=== PATIENT | female | born 1980 ===

== ENCOUNTER 2023-04-12 10:11 | Outpatient (REF) | payer MEDICAID, OTHER, SELFPAY ==
[2023-04-12 11:02] LABS: MANUAL DIFF FLAG NO
[2023-04-12 11:28] LABS: Basophils Percent Auto 0.4 % (0-2); Eosinophils Percent Auto 0.4 % (0-4); Hemoglobin 14.1 g/dl (12.0-16.0); Imm Gran Abs Auto 0.02 X10*3/uL (0.00-0.03); Imm Gran Pct Auto 0.2 % (0.0-0.4); Lymphocytes Absolute Auto 1.9 X10*3/uL (1.2-4.9); Mean Corpuscular HGB Conc 33.6 g/dl (31.0-35.0); Mean Corpuscular Hemoglobin 30.7 pg (27.0-33.0); Mean Corpuscular Volume 91.5 fL (80.0-98.0); Mean Platelet Volume 11.3 fL (9.4-12.3); Monocytes Absolute Auto 0.4 X10*3/uL (0.1-1.2); Monocytes Percent Auto 4.8 % (2-11); Neutrophils Absolute Auto 6.2 x10*3/uL (2.0-8.3); Neutrophils Percent Auto 72.2 % (45-73); Platelet Count 296 X10*3/uL (160-400); Red Blood Count 4.59 X10*6/uL (4.20-5.50); White Blood Count 8.5 X10*3/uL (4.8-10.8)
[2023-04-12 11:49] LABS: Alanine Aminotransferase 12 U/L (0-31); Albumin Level 4.2 g/dL (3.5-5.0); Alkaline Phosphatase 45 U/L (39-117); Anion Gap 12 (12-20); Aspartate Amino Transferase 18 U/L (5-31); Bilirubin Total 0.9 mg/dL (0.0-1.0); Blood Urea Nitrogen 14 mg/dL (9-16); C Reactive Protein < 0.10 mg/dL (< or = 0.50); Calcium 9.4 mg/dL (8.4-10.2); Carbon Dioxide 28 mmol/L (22-29); Chloride 106 mmol/L (96-108); Estimated Glomerular Filt Rate > 60; Glucose Random 96 mg/dL (60-115); Potassium 4.8 mmol/L (3.3-5.1); Sodium 141 mmol/L (135-145); Total Protein 7.1 g/dL (6.5-8.0)
[2023-04-12 12:00] LABS: HBS Num1 0.17 mIU/mL (0-7.99); HBc Num1 0.09 S/CO (0.00-0.79); HBsAGNum1 0.34 S/CO (0.00-0.99); Hepatitis A Antibody IgM 0.36 Index (0-0.79); Hepatitis B Core Antibody Nonreactive (Nonreactive); Hepatitis B Surface Antigen Negative (Negative); ~HepC Num1 0.09 S/CO (0.00-0.79); ~Hepatitis A Antibody IgM Nonreactive (Nonreactive); ~Hepatitis B Surface Antibody NONREACTIVE (Nonreactive); ~Hepatitis C Antibody Nonreactive (Nonreactive)
[2023-04-12 12:07] LABS: TSH reflex Free T4 1.93 uIU/mL (0.32-4.0); Vitamin D 25-OH Total 31.6 ng/mL (>30)
[2023-04-12 12:32] LABS: Erythrocyte Sedimentation Rate 7 MM/HR (0-20)
[2023-04-14 17:38] LABS: TS Negative Control Passed; TS Panel A 1; TS Panel B 1; TS Positive Control Passed; TSpotTB Negative (Negative)
[2023-04-15 10:04] LABS: Anti Nuclear Antibody Screen NEGATIVE (NEGATIVE)
== END 2023-04-12 10:12 | disposition home or self-care (01) ==
LOC: HO.HHCL 10:11
PROVIDERS: Visit Provider Internal Medicine
DX: R39.9 Unspecified symptoms and signs involving the genitourinary system (principal); G89.29 Other chronic pain; M54.6 Pain in thoracic spine; K59.01 Slow transit constipation
CPT/HCPCS: 36415; 80053; 82306; 84443; 85025; 85652; 86038; 86140; 86481; 86704; 86706; 86709; 86803; 87340

== ENCOUNTER 2023-05-07 14:16 | Outpatient (REF) | payer MEDICAID, OTHER, SELFPAY ==
--- NOTE | ~2023-05-07 | US_ITS ---
EXAMINATION: US RETROPERITONEAL LIMITED (RENAL ONLY) CLINICAL INFORMATION: Lower abdominal pain. COMPARISON: None available. TECHNIQUE: Real-time imaging of the kidneys. FINDINGS: RIGHT KIDNEY: 10.0 x 3.5 x 4.4 cm (SAG x AP x TRV). The kidney is normal in size, contour, and echogenicity. Renal cortical thickness is normal. 5 mm nonobstructing calculus. No hydronephrosis. LEFT KIDNEY: 9.4 x 5.2 x 5.5 cm (SAG x AP x TRV). The kidney is normal in size, contour, and echogenicity. Renal cortical thickness is normal. No calculi or focal parenchymal lesions. No hydronephrosis. US/US renal BI IMPRESSION: 5 mm nonobstructing right renal calculus. No left-sided renal calculi. No hydronephrosis of either kidney.
== END 2023-05-07 14:17 | disposition home or self-care (01) ==
LOC: HO.US 14:16
PROVIDERS: Visit Provider Internal Medicine
DX: R39.9 Unspecified symptoms and signs involving the genitourinary system (principal); M54.6 Pain in thoracic spine; G89.29 Other chronic pain
CPT/HCPCS: 76775

== ENCOUNTER 2023-08-05 09:41 | Outpatient (REF) | payer MEDICAID, OTHER, SELFPAY ==
[2023-08-05 11:43] LABS: Hematocrit 39.4 % (37.0-47.0); Hemoglobin 13.4 g/dl (12.0-16.0); Mean Corpuscular Hemoglobin 30.7 pg (27.0-33.0); Mean Corpuscular Volume 90.4 fL (80.0-98.0); Mean Platelet Volume 11.1 fL (9.4-12.3); Platelet Count 316 X10*3/uL (160-400); Red Blood Count 4.36 X10*6/uL (4.20-5.50); Red Cell Distribution Width 12.4 % (11.0-16.0); White Blood Count 7.7 X10*3/uL (4.8-10.8)
[2023-08-05 11:50] LABS: Estimated Average Glucose 94 mg/dL; Hemoglobin A1c % 4.9 % (<6.0)
[2023-08-05 12:02] LABS: Alanine Aminotransferase 17 U/L (0-31); Albumin Level 3.7 g/dL (3.5-5.0); Alkaline Phosphatase 34 U/L (39-117); Anion Gap 11 (12-20); Aspartate Amino Transferase 19 U/L (5-31); Bilirubin Total 0.7 mg/dL (0.0-1.0); Blood Urea Nitrogen 13 mg/dL (9-16); Calcium 9.2 mg/dL (8.4-10.2); Carbon Dioxide 26 mmol/L (22-29); Chloride 108 mmol/L (96-108); Cholesterol 216 mg/dL (<200); Estimated Glomerular Filt Rate > 60; Glucose Random 92 mg/dL (60-115); HDL Cholesterol 49 mg/dL (>40); LDL Cholesterol Calculated 131 mg/dL (<100); Potassium 4.6 mmol/L (3.3-5.1); Sodium 140 mmol/L (135-145); Total Protein 6.6 g/dL (6.5-8.0); Triglycerides 181 mg/dL (<150)
[2023-08-05 12:07] LABS: Syphilis Screen Nonreactive (Nonreactive)
[2023-08-05 12:09] LABS: HBc Num1 0.17 S/CO (0.00-0.79); HIV AB/AG Nonreactive (Nonreactive); HIV Num 1 0.06 S/CO (0.00-0.99); Hepatitis B Core Antibody Nonreactive (Nonreactive); Hepatitis B Surface Antigen Negative (Negative); ~HepC Num1 0.19 S/CO (0.00-0.79); ~Hepatitis B Surface Antibody NONREACTIVE (Nonreactive); ~Hepatitis C Antibody Nonreactive (Nonreactive)
[2023-08-05 12:19] LABS: TSH reflex Free T4 2.79 uIU/mL (0.32-4.0)
[2023-08-05 16:05] LABS: Appearance Urine Clear; Color Urine Yellow; Glucose Urine UA Negative (Negative); Leukocyte Esterase Urine Negative (Negative); Nitrite Urine Negative (Negative); Specific Gravity - Urine <= 1.005 (1.005-1.025); Urine Blood Negative (Negative); Urine Ketones Trace mg/dL (Negative); Urine Protein Negative (Neg-Trace)
[2023-08-05 18:02] LABS: CT PCR NOT DETECTED (Not Detect.); NG PCR NOT DETECTED (Not Detect.)
[2023-08-08 07:43] LABS: TS Negative Control Passed; TS Panel A 0; TS Panel B 1; TS Positive Control Passed; TSpotTB Negative (Negative)
[2023-08-10 23:48] LABS: C. trachomatis RNA TMA NOT DETECTED (NOT DETECTED); N. gonorrhoeae RNA TMA NOT DETECTED (NOT DETECTED)
[2023-08-11 00:03] LABS: Trichomonas (NAAT) NOT DETECTED (NOT DETECTED)
[2023-08-12 05:09] LABS: HPV 16 RNA NOT DETECTED (NOT DETECTED); HPV mRNA E6/E7 rflx Detected (Not Detected)
== END 2023-08-05 09:42 | disposition home or self-care (01) ==
LOC: HO.HHCL 09:41
PROVIDERS: Advanced Practice Midwife; Visit Provider Student in an Organized Health Care Education/Training Program
DX: Z00.00 Encounter for general adult medical examination without abnormal findings (principal); R82.90 Unspecified abnormal findings in urine; Z11.3 Encounter for screening for infections with a predominantly sexual mode of transmission; Z12.4 Encounter for screening for malignant neoplasm of cervix
CPT/HCPCS: 0353U; 36415; 80053; 80061; 81003; 83036; 84443; 85027; 86481; 86704; 86706; 86780; 86803; 87340; 87389; 87491; 87591; 87624; 87625; 87661; 88142

== ENCOUNTER 2023-09-06 07:22 | Outpatient (REF) | payer MEDICAID, OTHER, SELFPAY ==
--- NOTE | ~2023-09-06 | CT_ITS ---
EXAMINATION: CT ABDOMEN AND PELVIS WITHOUT CONTRAST CLINICAL INFORMATION: Flank pain with question of kidney stone. COMPARISON: Ultrasound kidneys 05/07/2023. TECHNIQUE: Multidetector volumetric imaging was performed from the superior aspect of the liver through the pubic symphysis without intravenous contrast. Sagittal and coronal reformatted images were obtained on the technologist's workstation. This CT examination was performed using dose optimization techniques as appropriate, variously including the following: *Automated exposure control. *Adjustment of mA and/or kV according to patient size (this includes techniques or standardized protocols for targeted exams where dose is matched to indication/reason for exam; i.e. extremities or head). *Use of iterative reconstruction technique. DLP: 405 mGy-cm FINDINGS: LUNG BASES: The visualized lung bases are unremarkable. LIVER, GALLBLADDER, AND BILIARY TREE: The liver is normal in size, shape, and attenuation. No focal hepatic lesion or biliary ductal dilatation is present. The gallbladder is unremarkable with no evidence of radiopaque gallstones, gallbladder wall thickening, or obvious pericholecystic inflammatory changes. PANCREAS: Unremarkable. SPLEEN: Unremarkable. ADRENAL GLANDS: Unremarkable. KIDNEYS AND URETERS: The kidneys are normal in size, shape, and attenuation. No hydronephrosis, hydroureter, or calculi seen. The previously seen 5 mm nonobstructing calculus in the right kidney on the ultrasound exam is not visualized on this current study. No perinephric stranding. BLADDER: Nearly empty but unremarkable. GASTROINTESTINAL TRACT: The small and large bowel are unremarkable. The appendix is not seen with certainty but there is no evidence of appendicitis. ABDOMINAL WALL: Innumerable rounded densities are seen in both buttocks most likely from injection augmentation procedures. No abdominal wall hernias are seen. LYMPH NODES: No retroperitoneal lymphadenopathy. VASCULAR: Unremarkable. PELVIC VISCERA: The uterus and adnexa are unremarkable. OSSEOUS STRUCTURES: Unremarkable. CT/CT kidney stone IMPRESSION: A cause for the patient's flank pain has not been found. No renal calculi are seen. The previously seen 5 mm nonobstructing calculus in the right kidney on the ultrasound exam is not visualized on this current study. Fleischner guidelines were followed.
== END 2023-09-06 07:23 | disposition home or self-care (01) ==
LOC: HO.CT 07:22
PROVIDERS: PCP Student in an Organized Health Care Education/Training Program; Visit Provider Urology
DX: R10.9 Unspecified abdominal pain (principal)
CPT/HCPCS: 74176

== ENCOUNTER 2023-09-14 13:54 | Outpatient (REF) | payer MEDICAID, OTHER, SELFPAY ==
--- NOTE | ~2023-09-14 | US_ITS ---
EXAMINATION: MM DIAGNOSTIC DIGITAL BREAST TOMOSYNTHESIS, BILATERAL US BREAST LIMITED, RIGHT MAMMOGRAPHY: CLINICAL INFORMATION: The patient presents for evaluation of right breast focal pain of one week's duration. COMPARISON: Mammography: There are no prior mammograms for comparison. This is a baseline mammogram. TECHNIQUE: Digital breast tomosynthesis is performed in both the craniocaudal and mediolateral oblique views along with computer-aided detection (CAD). Synthesized 2D images are generated from the tomosynthesis. A full lateral view of the right breast is unchanged. FINDINGS: There are scattered areas of fibroglandular density (ACR BI-RADS breast composition Category b). There are no significant masses, abnormal calcifications, or other abnormalities. ULTRASOUND: CLINICAL INFORMATION: The patient presents for evaluation of right breast focal pain of one week's duration. COMPARISON: None TECHNIQUE: Targeted sonographic evaluation was performed using a high frequency linear transducer. Selected archived documentation. FINDINGS: RIGHT BREAST: Sonography of the upper outer quadrant of the right breast is normal. Incidental note is made of a normal, 5 mm intramammary lymph node with a preserved hilum. This is an incidental finding located at the 9:00 position, 10 cm from the nipple. US/US breast RT limited mamm only IMPRESSION: Normal no mammographic or sonographic signs of malignancy. Clinical follow-up for the patient's symptomatology of right breast pain is advised. OVERALL ASSESSMENT: Mammography: BI-RADS 1 - Negative Ultrasound: BI-RADS 1 - Negative RECOMMENDATION: 1. Patient should be managed based on the clinical impression. 2. Otherwise, routine annual screening mammography. Results were provided to the patient at time of visit by the technologist. This patient's information was entered into a reminder system with a target due date for their next mammogram.
== END 2023-09-14 13:55 | disposition home or self-care (01) ==
LOC: HO.MAMMO 13:54
PROVIDERS: PCP Student in an Organized Health Care Education/Training Program; Visit Provider Student in an Organized Health Care Education/Training Program
DX: N64.4 Mastodynia (principal)
CPT/HCPCS: 76642; 77062; 77066

== ENCOUNTER → 2023-09-14 14:00 | Outpatient (BNV) | payer SELFPAY | PROVIDERS: PCP Student in an Organized Health Care Education/Training Program; Visit Provider Radiology Diagnostic Radiology | DX: N64.4 Mastodynia (principal) | CPT/HCPCS: 76642; 77062; 77066 ==

== ENCOUNTER 2023-10-15 12:57 | Outpatient (REF) | payer MEDICAID, OTHER, SELFPAY ==
--- NOTE | ~2023-10-15 | US_ITS ---
EXAMINATION: US PELVIS CLINICAL INFORMATION: Dysmenorrhea. COMPARISON: CT stone study dated 09/06/2023. TECHNIQUE: Ultrasound of the pelvis is performed using both transabdominal and transvaginal transducers along with Doppler. Transvaginal imaging is performed due to inadequate visualization transabdominally. FINDINGS: Uterus: The uterus is anteverted and measures 8.4 x 3.1 x 4.2 cm. The double wall endometrial thickness is 0.8 mm. There is an ovoid, heterogeneous focus within the endometrial cavity measuring 1.0 x 0.6 x 0.7 cm, which could represent a fibroid versus endometrial polyp. The uterus is smooth in contour and has normal myometrial echogenicity. Small fundal fibroid measuring 1.1 x 1.3 x 1.2 cm. Adnexa: Both ovaries are visualized. There is normal color flow to the adnexa. There is no ovarian torsion. There is no pelvic ascites or fluid collection. Right ovary measures 3.4 x 1.9 x 1.8 cm. Volume of 6 mL. Left ovary measures 2.9 x 2.4 x 3.2 cm. Volume of 12 mL. US/US pelvic and transvaginal IMPRESSION: 1. Ovoid, heterogeneous focus within the endometrial cavity measuring up to 1.0 cm, which could represent a fibroid versus endometrial polyp. Direct visualization could help further evaluate. 2. Small fundal fibroid measuring 1.3 cm. 3. Sonographically unremarkable right and left ovary.
== END 2023-10-15 12:58 | disposition home or self-care (01) ==
LOC: HO.US 12:57
PROVIDERS: PCP Student in an Organized Health Care Education/Training Program; Visit Provider Advanced Practice Midwife
DX: N94.6 Dysmenorrhea, unspecified (principal)
CPT/HCPCS: 76830; 76856

== ENCOUNTER 2024-09-25 | Outpatient (REF) | payer MEDICAID, OTHER, SELFPAY ==
[2024-09-28 19:18] LABS: Trichomonas (NAAT) NOT DETECTED (NOT DETECTED)
[2024-09-28 20:08] LABS: C. trachomatis RNA TMA NOT DETECTED (NOT DETECTED); N. gonorrhoeae RNA TMA NOT DETECTED (NOT DETECTED)
[2024-09-29 13:02] LABS: HPV Genotype 16 Negative (Negative); HPV Genotype 18 Negative (Negative); HPV High Risk Negative (Negative)
--- OUTSIDE RECORDS SUMMARY | 2024-11-27 08:25 | XMS_ITS | Encounter Summary ---
Author Organization [employer] Address [address] [place] [address] [address] [place] [address] Care Team Providers Care Reed Repairer Name Role Phone Payton Perez MD Primary Care Pro vider Reason for Visit * Reason Onset Date Comments Medication Question 10/20/2024 Encounter Details Date Type Department Care Team ([facility] st Contact Info) Description 10/20/2024 Telephone [facility] [address] [place], [place] [phone] Payton Perez MD [address] [place] [address] Medication Question Social History Tobacco Use Types [...] PM EDT Telephone call to pt via [employer] healthcare interpreter #[id number]. Pt reports having finished antibiotics doxycyclineand flagyl [...] heavy bleeding. Reviewed WIC hours and NTTS math interventionist. Pt then reported odor with urine and itching. Denies flank pain, pain with urination, or burning sensation. Reviewed that terconazole Rx sent on 09/29/24 for yeast infection, pt states she went to pharmacy but was not told of any other med. Advised her nurses will call to inquire about this, but to try medication for yeast and if symptoms persist, to come to [facility], reviewed sxs of UTI and when to seek medical attention. Pt verbalized understanding, no further questions. Called [facility] pharmacy, per pharmacist the pt's insurance only [...] Requesting a call back. Contact pt at [phone] (frisian) documented in this encounter Plan of Treatment Not on file documented as of this encounter Visit Diagnoses Not on filedocumented in this encounter Additional Health Concerns Assessment Noted Time PHQ-9 Depression Total Score: 2 09/28/19 25 10:08 AM EDT documented as of this encounter Care Teams Reed Repairer Relationship Specialty Start Date End Date Payton Perez MD [address] [place] [id number] PCP - General Internal Medicine 07/14/23 documented as of this encounter
== END 2024-09-25 00:01 ==
LOC: HO.LNP
PROVIDERS: Visit Provider Advanced Practice Midwife
DX: Z11.3 Encounter for screening for infections with a predominantly sexual mode of transmission (principal)
CPT/HCPCS: 87491; 87591; 87626; 87661; 88175

== ENCOUNTER 2024-09-27 07:58 | Outpatient (REF) | payer MEDICAID, OTHER, SELFPAY ==
--- NOTE | ~2024-09-27 | US_ITS ---
EXAMINATION: US PELVIS CLINICAL INFORMATION: Pelvic pain, with IUD. COMPARISON: 10/15/2023 TECHNIQUE: Ultrasound of the pelvis is performed using both transabdominal and transvaginal transducers along with Doppler. Transvaginal imaging is performed due to inadequate visualization transabdominally. FINDINGS: Uterus: The uterus is anteverted, anteflexed, and measures 8.6 x 4.2 x 4.5 cm. Cervix has a normal sonographic appearance. The double wall endometrial thickness is 5 mm. It is uniform without irregularity. There is an IUD in place, well situated within the endometrial canal. The uterus is smooth in contour and has normal myometrial echogenicity. There are 2 tiny fundal fibroid tumors. On the left, fundal subserosal fibroid measures 1.4 x 1.1 x 1.5 cm (previously 1.1 x 1.3 x 1.2 cm). On the right, subserosal fundal fibroid measures 1.5 x 1.4 x 1.2 cm, not previously seen. Adnexa: Both ovaries are visualized. There is normal color flow to the adnexa. There is no ovarian torsion. There is no pelvic ascites or fluid collection. Right ovary measures 3.1 x 2.4 x 1.8 cm. Volume = 7.0 mL. Normal sonographic appearance. Left ovary measures 2.1 x 1.7 x 3.0 cm. cm. Volume = 5.6 mL. Normal sonographic appearance. US/US pelvic and transvaginal IMPRESSION: 1. Normal endometrial thickness with appropriately situated IUD. 2. There are 2 subserosal fundal fibroid tumors present, both measuring up to 1.5 cm. The left fibroid appears minimally enlarged from the prior exam. The right was not seen previously. 3. Normal ovaries bilaterally. No free fluid. Electronically signed by: Corey Pandya MD 09/27/2024 08:53 AM EDT
--- OUTSIDE RECORDS SUMMARY | 2024-09-27 08:01 | XMS_ITS | Referral Summary ---
Author Organization [facility] Address [address] [place] [address] Care Team Providers Care Matting Press Tender Name Role Phone De OliveiraPayton Johnson Primary Care Provider Allergies Active Allergy Reactions Criticality Noted Date Comments Tramadol Swelling High 08/30/2023 Medications isopropyl alcohol-benzoca ine 70-6 % pads, medicatedIndica tions:ASCUS with positive high risk HPV cervical Use as directed on skin 08/13/2023 Active blood glucose diagnostic test stripIndication s:ASCUS with positive high risk HPV cervical Check daily glucose 08/13/2023 Active Freestyle lancets 28 gaugeIndication s:ASCUS with positive high risk HPV cervical 1 each by Other route daily. 08/13/2023 Active blood glucose diagnostic meter Use to test blood sugar bid dx dm 08/13/2023 Active Active Problems No known active problems Immunizations Immunization Administration Dates Next Due Human Papillomavirus 9-Valent Vaccine 09/22/2023 Influenza, Injectable, Quadrivalent, Preservativ e Free 07/14/2023 Tetanus Toxoid, Reduced Diph theria Toxoid, and Acellular Pertussis Vaccine, Adsorbed 08/13/2023 Social History Tobacco Use Types Packs/Day Years Used Date Smoking Tobacco: Never Smokeless Tobacco: Never Tobacco Cessation:Counseling Given: Not Answered Alcohol Use Standard Drinks/Week Comments Never 0 (1 standard drink = 0.6 oz pur e alcohol) Comments No Sex and Gender Information Value Date Recorded Sex Assigned at Female 09/22/2023 2:41 PM EDT Legal Sex Female 11:38 AM EST Gender Identity Female 03/17/2024 4:36 PM EDT Sexual Orientation Straight 03/17/2024 4: 36 PM EDT Last Filed Vital Signs Vital Sign Reading Time Taken Comments Blood Pressure 121/90 04/05/2024 6:13 PM EST Pulse 78 04/05/2024 6:13 PM EST Temperature 36.7 ??C (98.1 ??F) 04/05/2024 5:30 PM ES T Respiratory Rate 17 04/05/2024 5:30 PM EST Oxygen Saturation 99% 04/05/2024 6:13 PM EST Inhaled Oxygen Concentration - - Weight 63.5 kg (140 lb) 04/05/2024 11:58 AM EST Height 147.3 cm (4' 10 ) 04/05/2024 11:58 AM EST Body Mass Index 29.26 04/05/2024 11:58 AM EST Plan of Treatment Not on file Medical Devices Implanted Type Area Lecturer Of Portuguese Device Identifier Shelf Expiration Date Model / Serial / Lot Iud Mirena System Release Levonorgestrel Mirena - [id number] Implanted:Qty: 1 on 04/05/2024 by Olya Meraz MD at [facility] Implant N/A: Uterus [employer] 04/30/2026 MIRENA / / [id number] [facility] Advance Directives Documents on File Type Date Recorded Patient Urologist Physician Amira george Health Care Proxy 04/05/2024 1:35 PM Healthcare Agents on File Name Relationship Healthcare Agent Relationship Communication Jama Lemus Spouse Health Care Agent Care Teams Matting Press Tender Relationship Specialty Start Date End Date Payton Perez PCP - General 07/26/23
--- OUTSIDE RECORDS SUMMARY | 2024-09-27 08:01 | XMS_ITS | Clinical Summary ---
Author Organization [facility] Address [address] [place] [address] Care Team Providers Care Armored Transport Service Manager Name Role Phone De Oliveiralucila Slaughter Radha Primary Care Provider [phone]- [phone] Allergies Active Allergy Reactions Criticality Noted Date [...] Toxoid, and Acellular Pertussis Vaccine, Adsorbed 08/13/2023 Family History Medical History Relation Name Comments Diabetes Mother Hypertension Mother Relation Name Status Comments Father Alive Mother Alive Social History Tobacco Use Types Packs/Day Years [...] 04/05/2024 11:58 AM EST Plan of Treatment Health Maintenance Due Date Last Done Comments HPV and Pap Smear 1980 Varicella Vaccines (1 of 2 - 13+ 2-dose series) 1993 COVID-19 Vaccine (2 - 2023-2 5 season) 2024 07/14/2023 Alcohol/Substance Use Screening 05/31/2024 Depression Screening and Follow-Up 05/31/2024 Social Drivers of Health Annual Screening 05/31/2024 Influenza Vaccine (Season Ended) 2025 07/14/2023 Mammogram 09/13/2025 09/14/2023, 09/14/2023, 09/14/2023 Cervical Cancer Screening 08/04/2026 Pap Smear 08/04/2026 08/05/2023 DTaP,Tdap,and Td Vaccines (2 - Td or Tdap) 08/12/2033 08/13/2023 RSV Vaccine (60+ years old and patients) (1 - 1-dose 75+ series) 10/29/2055 HIV Screening Completed 08/05/2023, 08/05/2023 Hepatitis C Screening Completed 08/05/2023 Hepatitis B Vaccines Completed 05/05/2024, 11/11/2023, 10/11/2023 Pneumococcal Vaccine: Pediatric (0-5 Years) and At-Risk Patients (6-50 Years) Aged Out No longer eligible based on patient's age to complete this topic Medical Devices Implanted Type Area Supervisor [employer] Device Identifier Shelf Expiration Date Model / Serial / Lot Iud Mirena System Release Levonorgestrel Mirena - [id number] Implanted:Qty: 1 on 04/05/2024 by Olya Meraz MD at [facility] Implant N/A: Uterus [facility] 04/30/2026 MIRENA / / [id number] Insurance [facility]/FREE CARE Advance Directives Documents on File Type Date Recorded Patient Vocational Psychologist Expl anation Health Care Proxy 04/05/2024 1:35 PM Healthcare Agents on File Name Relationship Healthcare Agent Relationship Communication Jama Lemus Spouse Health Care Agent Care Teams Armored Transport Service Manager Relationship Specialty Start Date End Date Payton Perez PCP - General 07/26/23
--- OUTSIDE RECORDS SUMMARY | 2024-09-27 08:01 | XMS_ITS | Encounter Summary ---
Author Organization [employer] Address [address] [place] [address] Care Team Providers Care Office Chair Assembler Name Role Phone Payton Perez MD Primary Care Pro vider Reason for Visit * Reason Onset Date Comments chartprep 09/26/2024 Encounter Details Date Type Department Care Team ([facility] st Contact Info) Description 09/26/2024 Telephone [facility] [address] [place] [address] Houston Hwang MA chartprep Social History Tobacco Use Types Packs/Day Years Used Date Smoking Tobacco: Never Passive Smoke Exposure: Never Smokeless Tobacco: Never Alcohol Use Standard Drinks/Week Comments Not Currently 0 (1 standard drink = 0.6 oz pur e alcohol) social Depression Answer Date Recorded Patient Health Questionnaire-9 Score 3 07/14/2023 Patient Health Questionnaire-9 Score 3 07/14/2023 Last PHQ-9: Questionnaire Data Not on file 0 07/14/2023 Housing Stability Answer Date Recorded What is your housing situation today? I have divya mary 07/02/[address] you li ve. Do you have problems with any of the following? Pests such as bugs, ants, or mice 07/02/2023 Food Insecurity Answer Date Recorded Within the past 12 months, y ou worried that your food would run out before you got money to buy more: Never True 07/02/2023 Within the past 12 months,th e food you bought just didn't last and you didn't have enough money to get more: Never True 07/2023 Transportation Answer Date Recorded In the past 12 months, has l ack of transportation kept you from medical appts, meetings, work or from getting things needed for daily living? Yes, it has kept me from medical appointments or getting medications. 07/02/2023 Utilities Answer Date Recorded In the past 12 months, has t he electric, gas, oil or water company threatened to shut off services in your home? No 07/02/2023 Depression Answer Date Recorded Patient Health Questionnaire-2 Score 1 07/14/2023 Comments No Sex and Gender Information Value Date Recorded Sex Assigned at Female 04/12/2023 9:01 AM EST Legal Sex Female 10:58 AM EDT Gender Identity Female 04/12/2023 9:01 AM EST Sexual Orientation Don't know 07/14/2023 9: 39 AM EST Sexual Orientation Straight 07/14/2023 9: 39 AM EST documented as of this encounter Miscellaneous Notes * Telephone Encounter - Houston Hwang MA - 09/26/2024 10:58 AM EDT Chart Prep Labs: done Images: not done Referrals: appointment pending mammogram order efaxed to [facility]. Scheduling will call pt with génesis. IUD check up on 09/27/24, pelvis transvaginal check up 09/27/24 Vaccines due: Covid, flu Screenings: not applicable Overdue care gaps: SBIRT, SDOH, PHQ-9, KATHRYN-7, Oral health screening, and Disability screen documented in this encounter Plan of Treatment Upcoming Encounters Date Type Department Care Team (Late st Contact Info) Description 09/27/2024 9:30 AM EDT Office Visit [facility] [address] [place] [address] Cassandra Koenig FNP [address] [place] [address] documented as of this encounter Visit Diagnoses Not on filedocumented in this encounter Additional Health Concerns Assessment Noted Time PHQ-9 Depression Total Score: 3 07/14/19 24 9:32 AM EST documented as of this encounter Care Teams Office Chair Assembler Relationship Specialty Start Date End Date Payton Perez MD [address] [place] [address] PCP - General Internal Medicine 07/14/23 documented as of this encounter
--- OUTSIDE RECORDS SUMMARY | 2024-09-27 08:01 | XMS_ITS | Encounter Summary ---
Author Organization [facility] Address [address] [place] [address] Care Team Providers Care Collar Sewer Name Role Phone Payton Perez Primary Care Provider [phone]- [phone] Encounter Details Date Type Department Care Team (Late st Contact Info) Description 08/17/2023 Telephone [facility] Physician Referral Services [address] [place] [address] Payton Perez [address] [place] [address] Social History Tobacco Use Types Packs/Day Years Used Date Smoking Tobacco: Never Assessed Comments Unknown Sex and Gender Information Value Date Recorded Sex Assigned at Female 09/22/2023 2:41 PM EDT Legal Sex Female 11:38 AM EST Gender Identity Female 03/17/2024 4:36 PM EDT Sexual Orientation Straight 03/17/2024 4: 36 PM EDT documented as of this encounter Miscellaneous Notes * Telephone Encounter - Letha Mccarthy - 08/18/2023 4:05 PM EDT I called the pt and gave her the fax number here and she is going to call her Dr's office to have the records sent here. * Telephone Encounter - Hillary Burleson - 08/17/2023 3:51 PM EDT Please look at the referral placed in epic and the original referral, notes and lab results that have been uploaded into media and reach out to book documented in this encounter Plan of Treatment Not on file documented as of this encounter Visit Diagnoses Not on filedocumented in this encounter Care Teams Collar Sewer Relationship Specialty Start Date End Date Payton Perez PCP - General 07/26/23 documented as of this encounter
--- OUTSIDE RECORDS SUMMARY | 2024-09-27 08:01 | XMS_ITS | Encounter Summary ---
Author Organization [employer] Address [address] [place] [address] Care Team Providers Care Octave Board Assembler Name Role Phone Payton Perez MD Primary Care Pro vider Encounter Details Date Type Department Care Team (Latest Contact Info) Description 09/25/2024 Travel Social History Tobacco Use Types Packs/Day Years [...] AM EST documented as of this encounter Plan of Treatment Upcoming Encounters Date Type Department Care Team (Late st Contact Info) Description 09/27/2024 9:30 AM EDT Office Visit [facility] [address] [place] [address] Cassandra Koenig FNP [address] [place] [address] documented as of this encounter Visit Diagnoses Not on filedocumented in this encounter Additional Health Concerns Assessment Noted Time PHQ-9 Depression Total Score: 3 07/14/19 24 9:32 AM EST documented as of this encounter Care Teams Octave Board Assembler Relationship Specialty Start Date End Date Payton Perez MD [address] [place] [address] PCP - General Internal Medicine 07/14/23 documented as of this encounter
--- OUTSIDE RECORDS SUMMARY | 2024-09-27 08:01 | XMS_ITS | Encounter Summary ---
Author Organization [employer] Address [address] [place] [address] [address] [place] [address] Care Team Providers Care Jewel Hole Driller Name Role Phone Payton Perez MD Primary Care Pro vider Reason for Referral * Imaging (Urgent) - Authorized Specialty Diagnoses / Procedures Referred By Sultana stewart Referred To Contact Radiology Diagnoses Painful breasts Procedures BI Mammogram Diagnostic Tomosynthesis Bilateral Sara Roper CNM [address] [place] [address] Phone: tel: fax: [address] Phone: tel: fax: Referral ID Status Reason Start Date Expiration Date V isits Requested Visits Authorized [id number] Authorized 09/25/2024 09/25/2025 1 1 * Imaging (STAT) - Authorized Specialty Diagnoses / Procedures Referred By Sultana stewart Referred To Contact Radiology Diagnoses IUD check up Pelvic pain Procedures Us Pelvis complete Sara Roper CNM [address] [place] [address] Phone: tel: fax: [address] Phone: tel: fax: Referral ID Status Reason Start Date Expiration Date V isits Requested Visits Authorized [id number] Authorized 09/25/2024 09/25/2025 1 1 * Imaging (STAT) - Authorized Specialty Diagnoses / Procedures Referred By Sultana stewart Referred To Contact Radiology Diagnoses IUD check up Pelvic pain Procedures US Pelvis Transvaginal Sara Roper CNM [address] [place] [address] Phone: tel: fax: [address] Phone: tel: fax: Referral ID Status Reason Start Date Expiration Date V isits Requested Visits Authorized [id number] Authorized 09/25/2024 09/25/2025 1 1 Reason for Visit * Reason Comments Gynecologic Exam Encounter Details Date Type Department Care Team (Late st Contact Info) Description 09/25/2024 1:45 PM EDT Office Visit [facility] [address] [place] [address] Sara Roper CNM [address] [place] [address] Cervical cancer screening (Primary Dx); PID (acute pelvic inflammatory disease); Screening examination for venereal disease; IUD check up; Pelvic pain; Vaginal discharge; Painful breasts Social History Tobacco Use Types Packs/Day Years [...] AM EST documented as of this encounter Last Filed Vital Signs Vital Sign Reading Time Taken Comments Blood Pressure 121/84 09/25/2024 1:59 PM EDT Pulse 86 09/25/2024 1:59 PM EDT Temperature 36.3 ??C (97.4 ??F) 09/25/2024 1:59 PM ED T Respiratory Rate 16 09/25/2024 1:59 PM EDT Oxygen Saturation 98% 09/25/2024 1:59 PM EDT Inhaled Oxygen Concentration - - Weight 65.7 kg (144 lb 12.8 oz) 09/25/2024 1:59 PM EDT Height 152.4 cm (5') 09/25/2024 1:59 PM EDT Body Mass Index 28.28 09/25/2024 1:59 PM EDT documented in this encounter Progress Notes * Sara Roper CNM - 09/25/2024 1:45 PM EDT Subjective Patient ID: Gardenia Patel is a 43 y.o. female who presents for RESPIRATORY THERAPY DIRECTOR visit Last visit with me 09/2023. Referred to [facility] [place] for evaluation of fibroids. S/p hysteroscopic myomectomy, IUD placement 04/05/24. Pelvic ultrasound ordered 04/[address] Gonzalez at [facility] [place] due to pain with sex. Negative colposcopy preceded by ASCUS, HPV positive pap 2023. Due for cotesting. Mammogram 08/2023 [facility] 1. Exam by PAN Schrader, under my supervision. Today pt presents with irregular menstrual bleeding, reports last period 3 days ago. She has IUD inplace. She also complains of pelvic pain and bleeding during and not during sex that has been goingon since March. She reports some vaginal discharge. She denies fever chills, vaginal itching. She has a monogamous AMAB partner. She is due for pap today Also due for mammo, she is endorsing diffuse breast pain in upper part of both breasts that comes and goes, doesn't seem cyclical. Review of Systems Constitutional: Negative for chills and fever. Genitourinary: Positive for dyspareunia, pelvic pain, vaginal bleeding and vaginal discharge. Negative for decreased urine volume, difficulty urinating, dysuria, frequency, hematuria, menstrual problem, urgency and vaginal pain. Objective BP 121/84 (BP Location: Left arm, Patient Position: Sitting, BP Cuff Size: Adult) Pulse 86 Temp97.4 ??F (36.3 ??C) (Temporal) Resp 16 Ht 5' (1.524 m) Wt 144 lb 12.8 oz (65.7 kg) SpO2 98% BMI 28.28 kg/m?? Physical Exam Exam conducted with a licensed prosthetist present (Sara Roper CNM). Constitutional: Appearance: Normal appearance. Chest: Breasts: Right: Tenderness present. No swelling, bleeding, inverted nipple, mass, nipple discharge or skin change. Left: Tenderness present. No swelling, bleeding, inverted nipple, mass, nipple discharge or skin change. Comments: Bilateral tenderness upper inner quadrants, no masses Genitourinary: Labia: Right: No rash, tenderness, lesion or injury. Left: No rash, tenderness, lesion or injury. Vagina: No signs of injury and foreign body. Bleeding present. No vaginal discharge, erythema, tenderness, lesions or prolapsed vaginal johnston. Cervix: Cervical motion tenderness, friability and cervical bleeding present. No discharge, lesion,erythema or eversion. Uterus: Normal. Tender. Adnexa: Right: Tenderness present. No mass. Left: Tenderness present. No mass. Comments: IUD strings noted at 3cm in length. Lymphadenopathy: Upper Body: Right upper body: No supraclavicular or axillary adenopathy. Left upper body: No supraclavicular or axillary adenopathy. Neurological: Mental Status: She is alert. Psychiatric: Mood and Affect: Mood normal. Behavior: Behavior normal. Thought Content: Thought content normal. Judgment: Judgment normal. Assessment/Plan Problem List Items Addressed This Visit None Visit Diagnoses Cervical cancer screening - Primary Relevant Orders Pap Smear Pap performed today with STI add on If normal, pt next pap w/ cotesting due in 3 years PID (acute pelvic inflammatory disease) Relevant Medications cefTRIAXone (Rocephin) vial 500 mg Due to CMT, friability and pelvic pain for long duration will treat empirically for PID Plan to f/u on symptoms in 2 days, if symptoms worsen will consider removal of current IUD Advised to abstain from sex until results available. Screening examination for venereal disease Relevant Orders STI testing add on (NG, CT, Trich) Pap based STI testing sent IUD check up Relevant Orders US Pelvis Transvaginal Us Pelvis complete IUD was visualized with 3cm strings Plan to obtain pelvic US to further investigate pelvic pain and confirm correct placement of IUD At our f/u in 2 days plan to possibly remove IUD if symptoms persist Pelvic pain Relevant Orders US Pelvis Transvaginal Us Pelvis complete See above Vaginal discharge Relevant Orders POCT fern test, vaginal fluid manually resulted (Completed) Neg whiff test, no hyphae or yeast buds noted on microscopy Couple of clue cells noted Will test for STIs Will treat empirically for PID Diagnostic mammogram ordered for non-cyclical bilateral breast pain. documented in this encounter Plan of Treatment Upcoming Encounters Date Type Department Care Team (Late st Contact Info) Description 09/27/2024 9:30 AM EDT Office Visit [facility] [address] [place] [id number] Cassandra Koenig FNP [address] [place] [address] Scheduled Orders Name Type Priority Associated Diagnoses Orde r Schedule Pap Smear Pathology and Cytology Routine Cervical cancer screening Ordered: 09/25/2024 STI testing add on (NG, CT, Trich) Pathology and Cytology Routine Screening examination for venereal disease Ordered: 09/25/2024 US Pelvis Transvaginal Imaging STAT IUD check up Pelvic pain Expected: 09/25/2024, Expires: 09/25/2025 Us Pelvis complete Imaging STAT IUD check up Pelvic pain Expected: 09/25/2024, Expires: 09/25/2025 BI Mammogram Diagnostic Tomosynthesis Bilateral Imaging Urgent Painful breasts Expected: 09/25/2024, Expires: 11/25/2025 documented as of this encounter Procedures Procedure Name Priority Date/Time Associated Diagnosis Comments POCT WET MOUNT/PAULA Routine 09/25/2024 2: 33 PM EDT Vaginal discharge documented in this encounter Results * POCT fern test, vaginal fluid manually resulted (09/25/2024 2:33 PM EDT) PAULA Prep Negative Comment:few clue, neg trich, neg yeast, neg whiff, neg wbcs Vaginal Fluid Vaginal structure / Unknown 09/25/2024 2:33 PM EDT Sara CUMMINS POINT OF CARE TEST ENTER/ EDIT ORDERABLES Final Result documented in this encounter Visit Diagnoses Diagnosis Cervical cancer screening- Primary Screening for malignant neoplasm of the cervix PID (acute pelvic inflammatory disease) Acute parametritis and pelvic cellulitis Screening examination for venereal disease IUD check up Pelvic pain Vaginal discharge Leukorrhea, not specified as infective Painful breasts Mastodynia documented in this encounter Administered Medications Inactive Administered Medications - up to 3 most recent administrations Medication Order MAR Action Action Date Dose Rate Site cefTRIAXone (Rocephin) vial 500 mg 500 mg, Intramuscular, Once, On Wed09/25/24 at 1430, For 1 dose, Suspected Indication (Select all that apply): Sexually Transmitted Infection, Type of Therapy: EmpiricIndications:PID (acute pelvic inflammatory disease) Given 09/25/2024 2:30 PM EDT 500 mg Left Deltoid documented in this encounter Additional Health Concerns Assessment Noted Time PHQ-9 Depression Total Score: 3 07/14/19 9:32 AM EST documented as of this encounter Care Teams Jewel Hole Driller Relationship Specialty Start Date End Date Payton Perez MD [address] [place] [id number] PCP - General Internal Medicine 07/14/23 documented as of this encounter
--- OUTSIDE RECORDS SUMMARY | 2024-09-27 08:01 | XMS_ITS | Clinical Summary ---
Author Organization [employer] Address [address] [place] [address] [address] [place] [address] Care Team Providers Care Senior C Web Developer Name Role Phone Payton Perez MD Primary Care Pro vider Allergies Active Allergy Reactions Criticality Noted Date Comments Tramadol Angioedema 04/12/2023 Medications Alcohol Swabs (Alcohol Pads) 70 % pads Use as directed on skin 100 each 08/13/2023 Active Blood Glucose Monitoring Suppl (FreeStyle [place] Lite) w/Device kit Use to test blood sugar bid dx dm 1 kit 08/13/2023 Active FreeStyle lancets 1 each by Other route in the morning. Use bid, dx type 2 diabetes 60 each 2 08/13/2023 Active glucose blood (FREESTYLE LITE) test strip Check daily glucose 60 each 2 08/13/2023 Active norethindrone (Ortho Micronor) 0.35 MG tablet Take 1 tablet (0.35 mg) by mouth Once per day. Take at same time each day 28 tablet 12 10/11/2023 10/10/19 25 Active metroNIDAZOLE (Flagyl) 500 MG tablet Take 1 tablet (500 mg) by mouth 2 times daily for 14 days. 28 tablet 09/25/2024 10/10/19 25 Active doxycycline (Monodox) 100 MG capsule One twice a day for 14 days. Take with at least 8 ounces (large glass) of water, do not lie down for 30 minutes after 28 capsule 09/25/2024 Active Hospital, Clinic, or Other Facility Administered Medication Ordered Dose Route Frequency Start Date End Date Status cefTRIAXone (Rocephin) vial 500 mgIndications:PID (acute pelvic inflammatory disease) 500 mg IM Once 09/25/2024 09/25/2024 Ended Active Problems Problem Noted Date Diagnosed Date HLD (hyperlipidemia) 08/13/2023 Episode of dizziness 08/13/2023 Nephrolithiasis 07/15/2023 Lower urinary tract symptoms (LUTS) 04/12/2023 Assessment & Plan (04/12/2023 12:01 PM EST): Unclear if she has kidney stones? Hydronephroses ? Renal cysts with recurrent UTIs? Send urine for Cx. Rx Flomax x 1m + Pyridium prn sxs. Encouraged increased water intake Order labs to ro autoimmune disorders? Order renal US and fu with PCP Encounter for preventive health examination 03/31 Assessment & Plan (04/12/2023 12:03 PM EST): Patient Requested to continue on oral contraceptives as she was taking back home 8mo ago, she run out of rx. I will order CMP, if LFTs are nl, can rx OCP, she will call to check results. Encounters Date Type Department Care Team Description 09/26/2024 Telephone [facility] [address] [place] [phone] Houston Hwang MA chartprep 09/25/2024 1:45 PM EDT Office Visit [facility] [address] [place] [phone] Terrence Clarke CNM Cervical cancer screening (Primary Dx); PID (acute pelvic inflammatory disease); Screening examination for venereal disease; IUD check up; Pelvic pain; Vaginal discharge; Painful breasts 09/25/2024 Travel 07/14/2024 Travel from Last 3 Months Immunizations Name Administration Dates Next Due HPV 9-Valent 03/31/2024,01/06/2024,09/22/2023 Hep B, adult 05/05/2024,11/11/2023,10/11/2023 Influenza injectable quadriv alent preservative free 07/14/2023 Pfizer Covid-19 Vaccine 12+ 07/14/2023 Tdap 08/13/2023 Family History Medical History Relation Name Comments heart dx Father unspecified ca Maternal Grandfather gastric ca Maternal Grandmother DM2, HTN Mother cousin : breast ca Other Relation Name Status Comments Father Maternal Grandfather Maternal Grandmother Mother Other Social History Tobacco Use Types Packs/Day Years Used Date Smoking Tobacco: Never Passive Smoke Exposure: Never Smokeless Tobacco: Never Tobacco Cessation:Counseling Given: Not Answered Alcohol Use Standard Drinks/Week Comments Not Currently 0 (1 standard drink = 0.6 oz pur e alcohol) social Depression Answer Date Recorded Patient Health Questionnaire-9 Score 3 07/14/2023 Patient Health Questionnaire-9 Score 3 07/14/2023 Last PHQ-9: Questionnaire Data Not on file 0 07/14/2023 Housing Stability Answer Date Recorded What is your housing situation today? I have divya usman 07/02/[address] you li [...] Orientation Straight 07/14/2023 9: 39 AM EST Last Filed Vital Signs Vital Sign Reading [...] Mass Index 28.28 09/25/2024 1:59 PM EDT Plan of Treatment Upcoming Encounters Date Type Department Care Team (Late st Contact Info) Description 09/27/2024 9:30 AM EDT Office Visit [facility] [address] [place], [place] [phone] Cassandra Koenig FNP [address], [place] [phone] Health Maintenance Due Date Last Done Comments Alcohol/Substance Use Screening 1992 Family Planning (PISQ) 10/29/1995 COVID-19 Vaccine (2 - 2023-2 5 season) 2024 07/14/2023 Influenza Vaccine (#1) 2024 07/14/2023 SDOH Screening 07/02/2024 07/02/2023 Depression Screening 07/14/2024 07/14/2023, 07/14/2023 Mammogram 09/13/2024 09/14/2023, 09/14/2023 Cervical Cancer Screening 09/21/2024 HPV/Cotest 09/21/2024 08/05/2023 Pap Smear 09/21/2024 08/05/2023, 08/05/2023 Tobacco Screening 09/25/2025 09/25/2024 Zoster Vaccines (1 of 2) 2030 DTaP/Tdap/Td Vaccines (2 - T d or Tdap) 08/12/2033 08/13/2023 RSV Patients and Patients Aged 60 years or older (1 - 1-dose 75+ series) 10/29/2055 HIV Screening Completed 08/05/2023 Hepatitis C Screening Completed 08/05/2023 , 04/12/2023 HPV Vaccines Completed 03/31/2024, 01/06/2024, 09/22/2023 Hepatitis B Vaccines Completed 05/05/2024, 11/11/2023, 10/11/2023 HIB Vaccines Aged Out No longer eligi ble based on patient's age to complete this topic Hepatitis A Vaccines Aged Out No long er eligible based on patient's age to complete this topic IPV Vaccines Aged Out No longer eligi ble based on patient's age to complete this topic Meningococcal Vaccine Aged Out No minh nae eligible based on patient's age to complete this topic Pneumococcal Vaccine: Pediatrics (0 to 5 Years) and At-Risk Patients (6 to 49) Years) Aged Out No longer eligible b ased on patient's age to complete this topic RSV under 20 months Aged Out No longe r eligible based on patient's age to complete this topic Rotavirus Vaccines Aged Out No longer eligible based on patient's age to complete this topic Procedures Procedure Name Priority Date/Time Associated Diagnosis Comments POCT WET MOUNT/PAULA Routine 09/25/2024 2: 33 PM EDT Vaginal discharge BI MAMMOGRAM DIAGNOSTIC TOMOSYNTHESIS BILATERAL Urgent 09/14/2023 2:25 PM EDT Breast pain, right HPV MRNA E6/E7 REFLEX TO HPV 16, 18/45 Routine 08/05/2023 1:51 PM EST IMAGE-GUIDED PAP W/AGE BASED SCR,W/CT/NG/TRICH Routine 08/05/2023 1:51 PM EST Cervical cancer screening Postcoital and contact bleeding Encntr screen for infections w sexl mode of transmiss HEPATITIS C AB W/REFL TO HCV RNA, QN, PCR Routine 08/05/2023 9:46 AM EST Annual physical exam HIV 1/2 ANTIGEN/ANTIBODY, FOURTH GENERATION W/RFL Routine 08/05/2023 9:46 AM EST Annual physical exam from Last 3 Months or Most Recently Relevant to Health Maintenance Results * POCT fern test, vaginal fluid manually resulted (09/25/2024 2:33 PM EDT) PAULA Prep Negative Comment:few clue, neg trich, neg yeast, neg whiff, neg wbcs Vaginal Fluid Vaginal structure / Unknown 09/25/2024 2:33 PM EDT us Terrence Clarke CNM POINT OF CARE TEST ENTER/ EDIT ORDERABLES Final Result * BI Mammogram Diagnostic Tomosynthesis Bilateral (09/14/2023 2:25 PM EDT) Anatomical Region Laterality Modality Breast Bilateral Mammography 09/14/2023 2:25 PM EDT Narrative 09/21/2023 8:20 AM EDT ? [facility] [place] ? [address] ?[place] [address] ? Mammography Report ? Signed ? Patient: Jorge,Gardenia ?MR#: [id number] ?? 8 ? : 1980 ?Acct:[id number] ? Age/Sex: 42 / F ?ADM Date: 09/14/23 ? Loc: HO.MAMMO ? Attending Dr: Payton Slaughter MD ? Ordering Physician: TERRENCE CLARKE CNM ?Results: 1 ?? Negative ? Date of Service: 09/14/23 ?Follow Up: 1 Year From Orig ?? inal Mammogram ? Procedure(s): MM tomosynthesis diagnostic BI ?? Accession Number(s): [id number] ? cc: Payton Perez MD; TERRENCE CLARKE CNM ? EXAMINATION: ?? MM DIAGNOSTIC DIGITAL BREAST TOMOSYNTHESIS, BILATERAL ?? US BREAST LIMITED, RIGHT ? MAMMOGRAPHY: ?? CLINICAL INFORMATION: ? The patient presents for evaluation of right breast focal pain of one ?? week's duration. ? COMPARISON: ?? Mammography: There are no prior mammograms for comparison. This is a ?? baseline mammogram. ? TECHNIQUE: ?? Digital breast tomosynthesis is performed in both the craniocaudal and ?? mediolateral oblique views along with computer-aided detection (CAD). ?? Synthesized 2D images are generated from the tomosynthesis. A full ?? lateral view of the right breast is unchanged. ? FINDINGS: ?? There are scattered areas of fibroglandular density (ACR BI-RADS breast ?? composition Category b). ? There are no significant masses, abnormal calcifications, or other ?? abnormalities. ? ULTRASOUND: ?? CLINICAL INFORMATION: ?? The patient presents for evaluation of right breast focal pain of one ?? week's duration. ? COMPARISON: ?? None ? TECHNIQUE: ?? Targeted sonographic evaluation was performed using a high frequency ?? linear transducer. ??Selected archived documentation. ? FINDINGS: ? RIGHT BREAST: Sonography of the upper outer quadrant of the right ?? breast is normal. Incidental note is made of a normal, 5 mm ?? intramammary lymph node with a preserved hilum. This is an incidental ?? finding located at the 9:00 position, 10 cm from the nipple. ? MM/MM tomosynthesis diagnostic BI ?? IMPRESSION: ?? Normal no mammographic or sonographic signs of malignancy. Clinical ?? follow-up for the patient's symptomatology of right breast pain is ?? advised. ? OVERALL ASSESSMENT: ?? Mammography: BI-RADS 1 - Negative ?? Ultrasound: BI-RADS 1 - Negative ? RECOMMENDATION: ?? 1. Patient should be managed based on the clinical impression. ?2. ?? Otherwise, routine annual screening mammography. ? Results were provided to the patient at time of visit by the ?? technologist. ? This patient's information was entered into a reminder system with a ?? target due date for their next mammogram. ? Dictated By: ?Melissa Soni MD ? Signed By: ?<Electronically signed by Melissa Soni MD in OV> ? 09/21/2316 ? DD/ 142 ? TD/TT: ? Virtual Classroom Manager: ? Procedure Note Donotuseinterpreter, Image - 09/21/2023 [facility] [address] [place], [place] [address] Mammography Report Signed Patient: Abhijeet Patel#: [id number] 8 : 1980Acct:[id number] Age/Sex: 42 / FADM Date: 09/14/23 Loc: HO.MAMMO Attending Dr: Payton Slaughter MD Ordering Physician: TERRENCE CLARKEesults: 1 Negative Date of Service: 09/14/23Follow Up: 1 Year From Orig ina Mammogram Procedure(s): MM tomosynthesis diagnostic BI Accession Number(s): [id number] cc: Payton Perez MD; TERRENCE CLARKE CNM EXAMINATION: MM DIAGNOSTIC DIGITAL BREAST TOMOSYNTHESIS, BILATERAL US BREAST LIMITED, RIGHT MAMMOGRAPHY: CLINICAL INFORMATION: The patient presents for evaluation of right breast focal pain of one week's duration. COMPARISON: Mammography: There are no prior mammograms for comparison. This is a baseline mammogram. TECHNIQUE: Digital breast tomosynthesis is performed in both the craniocaudal and mediolateral oblique views along with computer-aided detection (CAD). Synthesized 2D images are generated from the tomosynthesis. A full lateral view of the right breast is unchanged. FINDINGS: There are scattered areas of fibroglandular density (ACR BI-RADS breast composition Category b). There are no significant masses, abnormal calcifications, or other abnormalities. ULTRASOUND: CLINICAL INFORMATION: The patient presents for evaluation of right breast focal pain of one week's duration. COMPARISON: None TECHNIQUE: Targeted sonographic evaluation was performed using a high frequency linear transducer. Selected archived documentation. FINDINGS: RIGHT BREAST: Sonography of the upper outer quadrant of the right breast is normal. Incidental note is made of a normal, 5 mm intramammary lymph node with a preserved hilum. This is an incidental finding located at the 9:00 position, 10 cm from the nipple. MM/MM tomosynthesis diagnostic BI IMPRESSION: Normal no mammographic or sonographic signs of malignancy. Clinical follow-up for the patient's symptomatology of right breast pain is advised. OVERALL ASSESSMENT: Mammography: BI-RADS 1 - Negative Ultrasound: BI-RADS 1 - Negative RECOMMENDATION: 1. Patient should be managed based on the clinical impression. 2. Otherwise, routine annual screening mammography. Results were provided to the patient at time of visit by the technologist. This patient's information was entered into a reminder system with a target due date for their next mammogram. Dictated By: Melissa Soni MD Signed By: <Electronically signed by Melissa Soni MD in OV> 09/21/23 0816 DD/ 1425 TD/TT: Virtual Classroom Manager: Terrence Clarke [facility] BI PROCEDURES Final R esult * Image-Guided Pap with Age-Based Screening??with CT/NG,??Trichomonas (08/05/2023 1:51 PM EST) Trichomonas (NAAT) NOT DETECTED NOT DETECTED [facility] Comment:The analytical perfo rmance characteristics of thisassay have been determined by [employer]. Themodifications have not been cleared or approved bythe FDA. This assay has been validated pursuant to theCLIA regulations and is used for clinical purposes.For additional information, please refer tohttp://education.VivoText/faq/Trichomonastma(This link is being provided for information/educational purposes only.)THIS TEST WAS PERFORMED AT:[employer] [place] [id number] NELSON MD CTNG Ref Lab NOT DETECTED NOT DETECTED [facility] NG Ref Lab NOT DETECTED NOT DETECTED [facility] Pap Vial 08/05/2023 1:51 PM EST 08/09/2023 12:39 PM EDT Narrative [facility] - 08/11/2023 12:03 AM EDT LMP: [id number] Terrence Clarke [facility] CYTOLOGY ORDERABLES F inal Result [facility] [address] [place] [phone] * (ABNORMAL) HPV mRNA E6/E7 w/Reflex to HPV Genotypes 16, 18/45 (08/05/2023 1:51 PM EST) HPV nRNA E6/E7 Detected(A ) Not Detected [facility] Comment:Methodology: Transcr iption-Mediated AmplificationThis assay detects E6/E7 viral messenger RNA (mRNA) from 14high-risk HPV types (16,18,31,33,35,39,45,51,52,56,58,59,66,68).Cervical sources are required for HPV testing.If a vaginal source from a patient who has had atotal hysterectomy with removal of cervix wassubmitted, please contact the testing laboratoryfor alternative testing options.For additional information, please refer tohttp://education.VivoText/faq/PQD206k2(This link if provided for information/educational purposes only.)THIS TEST WAS PERFORMED AT:[employer] [place] [phone] NELSON MD HPV 16 RNA NOT DETECTED NOT DETECTED [facility] HPV 18/45 RNA NOT DETECTED NOT DETECTED [facility] Comment:Methodology: Transcr iption Mediated AmplificationCervical sources are required for HPV testing.If a vaginal source from a patient who has had atotal hysterectomy with removal of cervix wassubmitted, please contact the testing laboratoryfor alternative testing options.THIS TEST WAS PERFORMED AT:[facility] [place] [phone] NELSON MD 08/05/2023 1:51 PM EST 08/09/2023 8:45 AM EDT Terrence Clarke [facility] CYTOLOGY ORDERABLES F inal Result Performing Organization Address [facility]/ZIP Co de Phone Number [facility] [address] [place] [phone] * Hepatitis C Antibody with Reflex to HCV, RNA, Quantitative, Real-Time PCR (08/05/2023 9:46 AM EST) Hepatitis C Antibody Nonreactive Nonreactive [facility] Comment:Antibodies to HCV no t detected; does not exclude early acuteHCV infection. Blood Venous blood specimen / Unknown 08/05/2023 9:46 AM EST 08/05/2023 11:31 AM EST Payton Slaughter MD LAB BLOOD ORDERAB LES Final Result Performing Organization Address [facility] Co de Phone Number [facility] [address] [place] [phone] * HIV-1/2 Antigen and Antibodies, Fourth Generation, with Reflexes (08/05/2023 9:46 AM EST) HIV AB/AG Nonreactive Nonreactive [facility] Comment:HIV-1 p24 Ag and/or HIV-1/HIV-2 Ab not detected.A test result that is nonreactive does not exclude thepossibility of exposure to or infection with HIV-1 and/orHIV-2. Nonreactive results in this assay for individualswith prior exposure to HIV-1 and/or HIV-2 may be due toantigen and antibody levels that are below the limit ofdetection of this assay.The [employer]led[employer] IT HIV Ag/Ab Combo assay result andsupplemental assay results should be interpreted inconjunction with the patient's clinical presentation,history and other laboratory results. If the results areinconsistent with clinical evidence, additional testing issuggested to confirm the result. Blood Venous blood specimen / Unknown 08/05/2023 9:46 AM EST 08/05/2023 11:31 AM EST Payton Slaughter MD LAB BLOOD ORDERAB LES Final Result [facility] [address] [place] [phone] from Last 3 Months or Most Recently Relevant to Health Maintenance [place] [address] [place] [address] LIMITED HSN FULL Care Teams Senior C Web Developer Relationship Specialty Start Date End Date Payton Perez MD [address] [place] [phone] PCP - General Internal Medicine 07/14/23
== END 2024-09-27 07:59 | disposition home or self-care (01) ==
LOC: HO.US 07:58
PROVIDERS: PCP Student in an Organized Health Care Education/Training Program; Visit Provider Advanced Practice Midwife
DX: R10.2 Pelvic and perineal pain (principal); Z30.431 Encounter for routine checking of intrauterine contraceptive device
CPT/HCPCS: 76830; 76856

== ENCOUNTER → 2024-09-27 08:01 | Outpatient (BNV) | payer SELFPAY | PROVIDERS: PCP Student in an Organized Health Care Education/Training Program; Visit Provider Radiology Diagnostic Radiology | DX: D25.2 Subserosal leiomyoma of uterus (principal) | CPT/HCPCS: 76830; 76856 ==

== ENCOUNTER 2024-10-31 17:14 | Outpatient (REF) | payer SELFPAY ==
[2024-11-01 13:16] LABS: Bacterial Vaginosis PCR NEGATIVE (Negative); Candida Group PCR DETECTED (Not Detect); Candida glab krusei PCR NOT DETECTED (Not Detect); Trichomonas vaginalis PCR NOT DETECTED (Not Detect)
== END 2024-10-31 17:15 | disposition home or self-care (01) ==
LOC: HO.HHCLNP 17:14
PROVIDERS: Visit Provider Advanced Practice Midwife
DX: N89.8 Other specified noninflammatory disorders of vagina (principal)
CPT/HCPCS: 81515

== ENCOUNTER 2024-11-17 09:09 | Outpatient (REF) | payer MEDICAID, OTHER, SELFPAY ==
--- NOTE | ~2024-11-17 | MM_ITS ---
EXAMINATION: MM DIAGNOSTIC DIGITAL BREAST TOMOSYNTHESIS, BILATERAL Bilateral Limited ultrasound. CLINICAL INFORMATION: Bilateral areas of tenderness and pain. COMPARISON: Mammography: Comparison is made with relevant prior exams. TECHNIQUE: Digital breast mammography with tomosynthesis is performed in both the craniocaudal and mediolateral oblique views along with computer-aided detection (CAD). FINDINGS: The breasts are heterogeneously dense, which may obscure small masses (ACR BI-RADS breast composition Category c). [place] markers are located in the upper outer breasts bilaterally without underlying abnormal findings. There are no significant masses, abnormal calcifications, or other abnormalities. Targeted color Doppler ultrasound scanning in the areas of the patient's bilateral breast pain right breast from 7 11:00 demonstrates a normal-appearing intramammary lymph node at 9:00 9 cm from the nipple otherwise there is no abnormal sonographic abnormality. There is only normal fibroglandular breast tissue. Targeted color Doppler ultrasound scanning in the area the patient's left breast pain from 1-5 o'clock demonstrates normal fibronodular breast tissue. There is no sonographic abnormal findings. Results are provided to the patient at time of visit by the technologist. MM/MM tomosynthesis diagnostic BI IMPRESSION: No mammographic or sonographic abnormal findings bilaterally to account for the patient's bilateral breast pain. Recommend clinical evaluation and follow-up. ASSESSMENT: BI-RADS BI-RADS 1 - Negative RECOMMENDATION: 1 year F/U This patient's information was entered into a reminder system with a target due date for their next mammogram. Electronically signed by: Michelle Tapia DO 11/17/2024 12:12 PM EDT
--- OUTSIDE RECORDS SUMMARY | 2024-11-17 09:28 | XMS_ITS | Encounter Summary ---
Author Organization [employer] Address [address] [place] [address] [address] [place] [address] Care Team Providers Care Communication Clerk Name Role Phone Payton Perez MD Primary Care Pro vider Reason for Visit * Reason Onset Date Comments Medication Question 10/20/2024 Encounter Details Date Type Department Care Team ([facility] st Contact Info) Description 10/20/2024 Telephone [facility] [address] [place], [place] [phone] Payton Perez MD [address] [place] [address] Medication Question Social History Tobacco Use Types Packs/Day Years Used Date Smoking Tobacco: Never Passive Smoke Exposure: Never Smokeless Tobacco: Never Alcohol Use Standard Drinks/Week Comments Not Currently 0 (1 standard drink = 0.6 oz pur e alcohol) social Depression Answer Date Recorded Patient Health Questionnaire-9 Score 2 09/27/2024 Patient Health Questionnaire-9 Score 2 09/27/2024 Last PHQ-9: Questionnaire Data Not on file 0 09/27/2024 Housing Stability Answer Date Recorded What is your housing situation today? I have divya mary 09/27/[address] you li ve. Do you have problems with any of the following? None of the above 09/27/2024 Food Insecurity Answer Date Recorded Within the past 12 months, y ou worried that your food would run out before you got money to buy more: Never True 09/27/2024 Within the past 12 months,th e food you bought just didn't last and you didn't have enough money to get more: Never True Transportation Answer Date Recorded In the past 12 months, has l ack of transportation kept you from medical appts, meetings, work or from getting things needed for daily living? No 09/27/2024 Utilities Answer Date Recorded In the past 12 months, has t he electric, gas, oil or water company threatened to shut off services in your home? No 09/27/2024 Depression Answer Date Recorded Patient Health Questionnaire-2 Score 1 09/27/2024 Internet Access Answer Date Recorded Internet Access Q1 Yes 09/27/2024 Internet Access Q2 Not on file 09/27/2024 Comments No Sex and Gender Information Value Date Recorded Sex Assigned at Female 04/12/2023 9:01 AM EST Legal Sex Female 10:58 AM EDT Gender Identity Female 04/12/2023 9:01 AM EST Sexual Orientation Don't know 07/14/2023 9: 39 AM EST Sexual Orientation Straight 07/14/2023 9: 39 AM EST documented as of this encounter Miscellaneous Notes * Telephone Encounter - Sara Roper CNM - 10/20/2024 3:35 PM EDT Sounds good - thanks! 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 Pt reports having finished antibiotics doxycyclineand flagyl today. Reports continued intermittent pelvic pain, states that she first felt better however on Wednesday the pain was worse. Reports she had mild bleeding on Wednesday but states today the pain is under control (with Advil) and denies bleeding today. Advised her per provider, if pain ispersists to discuss IUD removal. Pt reports wanting to wait a few more days to see if symptoms persist or resolve. Advised her to call back or come into [place] for severe, colicky pain or heavy bleeding. 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 Pt then reported odor with urine and itching. Denies flank pain, pain with urination, or burning sensation. Reviewed that terconazole Rx sent on 09/29/24 for yeast infection, pt states she went to pharmacy but was not told of any other med. Advised her nurses will call to inquire about this, but to try medication for yeast and if symptoms persist, to come to [facility], reviewed sxs of UTI and when to seek medical attention. Pt verbalized understanding, no further questions. Called [facility] pharmacy, per pharmacist the pt's insurance only covers antibiotics. The out of pocket cost for terconazole is ~$22. OTC version is roughly the same nelson. Will send as FYI to CNM and PCP.Called pt to notify, she said she will go today to pick it up. Scheduled her for follow up with CNM on 10/31/24 per pt request. No further discussions. * Telephone Encounter - Marianne Guadalupe - 10/20/2024 10:10 AM EDT TC from pt stating she was told to call back by PCP once her prescription ended. Requesting a call back. Contact pt at [phone] (mongolian) documented in this encounter Plan of Treatment Not on file documented as of this encounter Visit Diagnoses Not on filedocumented in this encounter Additional Health Concerns Assessment Noted Time PHQ-9 Depression Total Score: 2 09/28/19 25 10:08 AM EDT documented as of this encounter Care Teams Communication Clerk Relationship Specialty Start Date End Date Payton Perez MD [address] [place] [id number] PCP - General Internal Medicine 07/14/23 documented as of this encounter
== END 2024-11-17 09:10 | disposition home or self-care (01) ==
LOC: HO.MAMMO 09:09
PROVIDERS: PCP Student in an Organized Health Care Education/Training Program; Visit Provider Advanced Practice Midwife
DX: N64.4 Mastodynia (principal)
CPT/HCPCS: 76642; 77062; 77066

== ENCOUNTER → 2024-11-17 09:30 | Outpatient (BNV) | payer SELFPAY | PROVIDERS: PCP Student in an Organized Health Care Education/Training Program; Visit Provider Internal Medicine | DX: N64.4 Mastodynia (principal) | CPT/HCPCS: 76642; 77062; 77066 ==